=== PATIENT | female | born 1980 | race American Indian/Alaskan Native ===

== ENCOUNTER 2018-09-26 10:40 | Outpatient (CLI) | payer OTHER | END 2018-09-26 10:41 | disposition home or self-care (01) | LOC: C.LAB 10:40 | DX: Z01.818 Encounter for other preprocedural examination (principal); E66.01 Morbid (severe) obesity due to excess calories; D50.0 Iron deficiency anemia secondary to blood loss (chronic); E56.9 Vitamin deficiency, unspecified; E11.9 Type 2 diabetes mellitus without complications; E53.8 Deficiency of other specified B group vitamins ==

== ENCOUNTER 2018-11-21 14:08 | Outpatient (CLI) | payer OTHER | END 2018-11-21 14:09 | disposition home or self-care (01) | LOC: C.USIC 14:08 | DX: E04.9 Nontoxic goiter, unspecified (principal) ==